=== PATIENT | female | born 1945 | race Caucasian/White ===

== ENCOUNTER 2020-11-30 07:19 | Emergency (ER) | payer OTHER ==
[~2020-11-30] VITALS: Ht 149.9 cm; Wt 81.6 kg
[2020-11-30] MEDS ORDERED: COZAAR100 MG (07:40)
[2020-11-30] MEDS ORDERED: SYNTHROID50 MCG (07:41)
[2020-11-30] MEDS ORDERED: KETO10TA2 PO (10:18)
[2020-11-30] MEDS ORDERED: ORPHENADRINE C100 MG PO (10:18)
== END 2020-11-30 12:35 | disposition home or self-care (01) ==
LOC: ER 07:19
DX: S40.012A Contusion of left shoulder, initial encounter (principal); S50.02XA Contusion of left elbow, initial encounter; S90.01XA Contusion of right ankle, initial encounter; M79.602 Pain in left arm; W18.09XA Striking against other object with subsequent fall, initial encounter; Y93.89 Activity, other specified; Y92.098 Other place in other non-institutional residence as the place of occurrence of the external cause; Y99.8 Other external cause status

== ENCOUNTER 2021-02-28 08:10 | Emergency (ER) | payer OTHER ==
[~2021-02-28] VITALS: Ht 149.9 cm; Wt 81.6 kg
[~2021-02-28 08:10] MED LIST: COZAAR100 MG; KETO10TA2 PO; ORPHENADRINE C100 MG PO; SYNTHROID50 MCG
[2021-02-28] MEDS ORDERED: ZIPSOR25 MG (08:17)
== END 2021-02-28 13:27 ==
LOC: ER 08:10
DX: G89.11 Acute pain due to trauma (principal); M25.561 Pain in right knee; S80.01XS Contusion of right knee, sequela; W18.09XS Striking against other object with subsequent fall, sequela